=== PATIENT | male | born 1980 | race Caucasian/White ===

== ENCOUNTER 2025-04-30 06:39 | Emergency (ER) | payer BC, SELFPAY ==
[2025-04-30] VITALS (25 sets, daily range): BP systolic 112–153; BP diastolic 59–87; PULSE 62–98; RESP 12–24; TEMP 36.6; O2SAT 91–100
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
[2025-04-30] MEDS: Normal Saline - Diluent 50 ML VIAL IJ (06:54)
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
[2025-04-30 07:00] LABS: Abs Immature Grans 0.28 10^3/uL (0.0-0.06); Absolute Lymphocyte Count 4.42 10^3/uL (1.2-3.4); Basophils % 0.3 %; Eosinophils % 0.5 %; HCT 46.3 % (40.0-50.0); HGB 16.7 g/dL (13.5-17.5); Immature Grans % 1.5 %; Lymphocytes % 23.2 %; MCH 31.2 pg (27.0-33.0); MCHC 36.1 % (32.0-36.0); MCV 87 fL (80-95); MPV 9.9 fL (8.0-11.0); Monocytes % 4.7 %; Neutrophils % 69.8 %; Platelet Count 305 10^3/uL (130-400); RBC 5.35 10^6/uL (4.36-5.78); RDW 12.8 % (11.8-14.1); RDW-SD 39.6 fL; WBC 19.06 10^3/uL (4.4-10.8)
[2025-04-30 07:01] LABS: Absolute Basophil Count 0.06 10^3/uL (0.0-0.2)
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
[2025-04-30] MEDS: Omnipaque 350 MG/ML 100 ML BTL IJ (07:10)
[2025-04-30 07:16] LABS: Lipase 36 U/L (<78)
[2025-04-30 07:19] LABS: ALT 413 U/L (16-63); AST 285 U/L (15-37); Alkaline Phosphatase 97 U/L (46-116); Anion Gap 13.5 mmol/L (3-11); BUN 18 mg/dL (7-18); CO2 22.5 mmol/L (21.0-32.0); CREATININE 1.2 mg/dL (0.70-1.30); Calcium 8.7 mg/dL (8.5-10.1); Chloride 102 mmol/L (98-107); Estimated GFR 75.53 (mL/min/1.73m2); Glucose 238 mg/dL (74-106); Potassium 3.8 mmol/L (3.5-5.1); Sodium 138 mmol/L (136-145); Total Protein 7.1 g/dL (6.4-8.2)
[2025-04-30 07:31] LABS: ETHANOL BLOOD < 3.0 mg/dL (<10)
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
[2025-04-30] MEDS: Diph,Pertuss(Acell),Tet Vac/Pf 0.5 ML SYR IM (07:41)
[2025-04-30] MEDS: fentaNYL 100 MCG/2 ML VIAL 50 MCG IVP ×2 (07:42→08:37)
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
[2025-04-30] MEDS: Normal Saline 1,000 ML 1000 ML IV (07:43)
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
[2025-04-30 08:48] LABS: Bilirubin Negative (Negative); Blood Large (Negative); Clarity Sl Cloudy (Clear); Glucose Negative (Negative); Ketones Negative (Negative); Leukocyte Esterase Negative (Negative); Nitrite Negative (Negative); Specific Gravity 1.025 (1.005-1.025); Urobilinogen 0.2 mg/dL (Up to 0.2); pH 5.5 (5-8)
[2025-04-30 08:56] LABS: Bacteria Many HPF (Negative); Epithelial Cells Few HPF (Negative); Other Cells Few Yeast (Negative); RBC 20-50 HPF (0-2); WBC 0-2 HPF (0-5)
[2025-04-30 08:57] LABS: C & S Indicated? No; Crystals Negative HPF (Negative); Mucus Moderate (Negative)
[2025-04-30 09:04] LABS: *AMPHETAMINES SCREEN URINE Negative (Negative); *BARBITURATES SCREEN URINE Negative (Negative); *BENZODIAZEPINES SCREEN URINE Negative (Negative); Cannabinoids THC Negative (Negative); Cocaine Screen,Urine Negative (Negative); METHADONE URINE SCREEN Negative (Negative); OPIATES URINE SCREEN Negative (Negative)
[2025-04-30 09:06] LABS: Tricyclic Antidepressants Negative (Negative)
== END 2025-04-30 09:06 | disposition short-term general hospital (02) ==
PROVIDERS: Emergency Medicine; Emergency Provider Emergency Medicine; PCP Family Medicine
DX: S22.010A Wedge compression fracture of first thoracic vertebra, initial encounter for closed fracture (principal); S36.113A Laceration of liver, unspecified degree, initial encounter; S12.400A Unspecified displaced fracture of fifth cervical vertebra, initial encounter for closed fracture; S12.500A Unspecified displaced fracture of sixth cervical vertebra, initial encounter for closed fracture; S22.41XA Multiple fractures of ribs, right side, initial encounter for closed fracture; S02.40CA Maxillary fracture, right side, initial encounter for closed fracture; S02.85XA Fracture of orbit, unspecified, initial encounter for closed fracture; S27.322A Contusion of lung, bilateral, initial encounter; K66.1 Hemoperitoneum; R74.01 Elevation of levels of liver transaminase levels; S22.42XA Multiple fractures of ribs, left side, initial encounter for closed fracture; S22.020A Wedge compression fracture of second thoracic vertebra, initial encounter for closed fracture; S22.030A Wedge compression fracture of third thoracic vertebra, initial encounter for closed fracture; S22.040A Wedge compression fracture of fourth thoracic vertebra, initial encounter for closed fracture; Z23 Encounter for immunization; V48.5XXA Car driver injured in noncollision transport accident in traffic accident, initial encounter
CPT/HCPCS: 99285 ×2; 96374; 96376; 90471; 36415; 00123; 74177; 80053; 80307; 83690; 86850; 86900; 86901; 90715; 96361; 70450; 71260; 72125; 80320; 81003; 81015; 85025; J3010; J3490